=== PATIENT | male | born 1995 | race African-American/Black ===

== ENCOUNTER 2019-01-25 16:09 | Emergency (ER) | payer SELFPAY ==
[~2019-01-25] VITALS: Ht 188 cm; Wt 115.7 kg
[2019-01-25 16:15] VITALS: BP_SYST 126
--- NOTE | 2019-01-25 16:15 | NUR ---
Toradaol IM given per MD order. Will reassess.
--- NOTE | 2019-01-25 16:19 | NUR ---
Patient to ER bed 5 to gown for evaluation. Side rails up. Report given to ADRIENNE BURTON.
--- NOTE | 2019-01-25 16:20 | NUR ---
ER at bedside examining patient.
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
[2019-01-25] MEDS ORDERED: KETOROLAC TROMETHAMINE 60 MG/2 ML VIAL IM ONE (16:30)
[2019-01-25 17:45] VITALS: BP_SYST 132
--- NOTE | 2019-01-25 17:45 | NUR ---
Patient given written and verbal discharge instructions and verbalizes understanding. ER MD discussed with patient the results and treatment provided. Patient in stable condition. ID arm band removed. Rx of MOTRIN,FLEXRIL given. Patient educated on pain management and to follow up with MD. Pain Scale 0. Opportunity for questions provided and answered. Medication side effect fact sheet provided.
== END 2019-01-25 17:45 | disposition home or self-care (01) ==
LOC: SED 16:09
DX: S39.012A Strain of muscle, fascia and tendon of lower back, initial encounter (principal); V49.9XXA Car occupant (driver) (passenger) injured in unspecified traffic accident, initial encounter; Y93.89 Activity, other specified; Y92.488 Other paved roadways as the place of occurrence of the external cause; Y99.8 Other external cause status
CPT/HCPCS: 72100; 96372; 99283; J1885